=== PATIENT | male | born 1995 ===

== ENCOUNTER 2021-10-16 20:03 | Emergency (ER) | payer SELFPAY ==
[2021-10-16] MEDS ORDERED: PREDNISONE10 MG PO (20:54)
[2021-10-16 21:32] VITALS: BP 141/99
== END 2021-10-16 22:32 | disposition home or self-care (01) ==
LOC: ED 20:03
DX: L23.7 Allergic contact dermatitis due to plants, except food (principal); Z28.310 Unvaccinated for COVID-19
CPT/HCPCS: J7512